=== PATIENT | female | born 1955 | race Caucasian/White ===

== ENCOUNTER 2019-06-25 16:46 | Emergency (ER) | payer OTHER ==
[~2019-06-25] VITALS: Ht 170.2 cm; Wt 69.9 kg
[2019-06-25] MEDS ORDERED: SYNTHROID88 MCG (16:51)
[2019-06-25] MEDS ORDERED: DISCOVISC DISP S1 ML (16:51)
== END 2019-06-25 17:52 | disposition home or self-care (01) ==
LOC: ER 16:46
DX: K29.70 Gastritis, unspecified, without bleeding (principal)